=== PATIENT | female | born 1980 | race Caucasian/White ===

== ENCOUNTER 2023-12-11 06:26 | Day surgery (SDC) | payer OTHER ==
[2023-12-05 16:31] VITALS: BMI 24.0
[2023-12-11] MEDS ORDERED: PROPOFOL 20 ML ONE (07:22)
[2023-12-11] MEDS ORDERED: MIDAZOLAM HCL 2 MG/2 ML SINGLE DOSE VIAL ONE (07:23)
[2023-12-11] MEDS ORDERED: VANCOMYCIN 1,000 MG VIAL (RESTRICTED TO ID ONLY) ONE (07:39)
[2023-12-11] MEDS ORDERED: GENTAMICIN SO4 80 MG/2 ML VIAL ONE (07:40)
[2023-12-11] MEDS ORDERED: LIDOCAINE HCL/PF 2% SDV 5ML VIAL ONE (07:56)
[2023-12-11] MEDS ORDERED: BUPIVACAINE HCL/PF 0.5% (5MG/ML) 10 ML VIAL ONE (08:05)
[2023-12-11] MEDS ORDERED: CLINDAMYCIN 600MG PREMIX IVPB 600 MG/50 ML BAG IVPB ONE (08:12)
[2023-12-11] MEDS ORDERED: DEXAMETHASONE SOD PHOSPHATE 4 MG/1 ML VIAL ONE (08:12)
[2023-12-11] MEDS ORDERED: ONDANSETRON 4 MG/2 ML VIAL ONE (08:12)
[2023-12-11] MEDS: BUPIVACAINE HCL/PF 0.5% (5MG/ML) 10 ML VIAL IJ ONE ×2 (08:16→09:00)
[2023-12-11] MEDS ORDERED: BACITRACIN ZINC 15 GM TUBE TOPICAL OINTMENT ONE (08:56)
[2023-12-11] MEDS ORDERED: oxyCODONE HCL 5 MG TABLET PO PRN ×3 (09:34→09:48)
[2023-12-11] MEDS ORDERED: ONDANSETRON 4 MG/2 ML VIAL IVPUSH PRN (09:34)
[2023-12-11] MEDS ORDERED: LACTATED RINGERS SOLUTION 1,000 ML IV SCH ×2 (09:45→10:00)
[2023-12-11 10:45] VITALS: RESP 16; TEMP 97.2
[2023-12-11 11:16] VITALS: BP 117/65; PULSE 56
[2023-12-11] MEDS ORDERED: ONDANSETRON 4 MG/2 ML VIAL IVPB PRN (16:36)
== END 2023-12-11 11:11 | disposition home or self-care (01) ==
LOC: FASU 06:26
PROVIDERS: ATTEND Plastic Surgery
PROC: 0J9600Z Drainage of Chest Subcutaneous Tissue and Fascia with Drainage Device, Open Approach (ICD-10-PCS; 2023-12-11)
PROC: 0HBT0ZX Excision of Right Breast, Open Approach, Diagnostic (ICD-10-PCS; 2023-12-11)
PROC: 0JB60ZZ Excision of Chest Subcutaneous Tissue and Fascia, Open Approach (ICD-10-PCS; principal; 2023-12-11 08:17)
DX: S21.001A Unspecified open wound of right breast, initial encounter (principal); N64.89 Other specified disorders of breast; N61.21 Granulomatous mastitis, right breast; N64.1 Fat necrosis of breast
CPT/HCPCS: 81025; 87070; 87102; 87116; 87186; 87205; 87206; 87210; 88305-TC; 88312-TC; 88342-TC; 94760

== ENCOUNTER 2024-01-17 12:18 | Observation (INO) | payer OTHER ==
[2024-01-17 13:27] LABS: PROTHROMBIN TIME (PATIENT) 11.4 SEC (9.7-13.0)
[2024-01-17 13:29] LABS: ACTIVATED PTT 30.4 SECONDS (25.2-36.5)
[2024-01-17 13:39] LABS: HEMATOCRIT 46.9 % (32.4-45.2); MCH 28.8 pg (25.7-33.7); MEAN CELL VOLUME 89.8 fl (80-96); MEAN PLT VOLUME 8.5 fl (7.5-11.1); PLATELET COUNT 246.9 10^3/uL (134-434); RBC 5.22 10^6/uL (3.60-5.2); RDW 13.7 % (11.6-15.6); WHITE BLOOD COUNT 6.2 10^3/uL (4.0-10.8)
[2024-01-17 13:42] LABS: PLATELET ESTIMATE ADEQUATE
[2024-01-17 13:48] LABS: ALBUMIN 4.6 g/dl (3.4-5.0); BILIRUBIN,TOTAL 0.6 mg/dl (0.2-1); CALCIUM 9.9 mg/dl (8.5-10.1); CREATININE 0.8 mg/dl (0.6-1.3); POTASSIUM 3.7 mmol/L (3.5-5.1); TOT PROT 7.3 g/dl (6.4-8.2)
[2024-01-17 14:02] LABS: HCG,QUALITATIVE URINE Negative
[2024-01-17] MEDS ORDERED: LIDO 2%/EPI 1:200000 PRESRVFRE (20 ML SDVIAL) ONE (15:18)
[2024-01-17] MEDS ORDERED: ACETAMINOPHEN 325 MG TABLET (FP) PO PRN (17:06)
[2024-01-17 18:15] VITALS: BMI 25.6
[2024-01-17] MEDS: LINEZOLID 600 MG TABLET (RESTRICTED TO ID) PO SCH (22:56)
[2024-01-18] MEDS: AZITHROMYCIN 250 MG TABLET PO SCH (09:02)
[2024-01-18] MEDS ORDERED: AZITHROMYCIN 500 MG TABLET PO SCH (10:13)
[2024-01-18] MEDS: oxyCODONE HCL 5 MG TABLET PO ONE (20:48)
[2024-01-18] MEDS: ACETAMINOPHEN 325 MG TABLET (FP) PO ONE (20:49)
[2024-01-18] MEDS: IBUPROFEN 400 MG TABLET (FP) PO PRN (20:51)
[2024-01-18] MEDS: LIDO 2%/EPI 1:200000 PRESRVFRE (20 ML SDVIAL) INF ONE (22:09)
[2024-01-18] MEDS: LINEZOLID 600 MG TABLET (RESTRICTED TO ID) PO SCH (22:09)
[2024-01-18] MEDS: LINEZOLID PO SCH (22:09)
[2024-01-18 22:18] VITALS: RESP 18
[2024-01-19] MEDS: AZITHROMYCIN 250 MG TABLET PO SCH (09:36)
[2024-01-19 09:48] LABS: HEMATOCRIT 42.5 % (32.4-45.2); HEMOGLOBIN 14.4 GM/dL (10.7-15.3); MCH 30.1 pg (25.7-33.7); MEAN CELL VOLUME 88.5 fl (80-96); MEAN PLT VOLUME 7.7 fl (7.5-11.1); PLATELET COUNT 230 10^3/uL (134-434); RDW 12.9 % (11.6-15.6); WHITE BLOOD COUNT 6.4 K/mm3 (4.0-10.0)
[2024-01-19 10:10] LABS: POTASSIUM 4.2 mmol/L (3.5-5.1)
[2024-01-19 10:15] LABS: ALBUMIN 3.7 g/dl (3.4-5.0); BLOOD UREA NITROGEN 11.7 mg/dL (7-18); CALCIUM 9.5 mg/dL (8.5-10.1)
[2024-01-19 10:18] LABS: CREATININE 0.9 mg/dL (0.55-1.3)
[2024-01-19 10:20] LABS: BILIRUBIN,TOTAL 0.7 mg/dL (0.2-1)
[2024-01-19 11:11] VITALS: TEMP 98.2
[2024-01-19 15:12] VITALS: BP 109/71; PULSE 83
== END 2024-01-19 15:15 | disposition home or self-care (01) ==
LOC: FER 12:18 → FM/S 16:57 → J8W 01-18 14:15
PROVIDERS: ADMIT Plastic Surgery
PROC: 0J983ZZ Drainage of Abdomen Subcutaneous Tissue and Fascia, Percutaneous Approach (ICD-10-PCS; principal; 2024-01-17)
DX: T81.49XA Infection following a procedure, other surgical site, initial encounter (principal); A31.8 Other mycobacterial infections; L02.211 Cutaneous abscess of abdominal wall; X58.XXXA Exposure to other specified factors, initial encounter; Y99.8 Other external cause status
CPT/HCPCS: 36415; 74177-TC; 74182-TC; 80053; 81003; 82962; 84703; 85027; 85610; 85730; 86850; 86900; 86901; 87070; 87086; 87102; 87116; 87205; 87206; 87210; 99285-25; G0378; Q9967